=== PATIENT | female | born 1945 | race Caucasian/White ===

== ENCOUNTER 2020-01-06 12:46 | Outpatient (CLI) | payer MEDICARE, SELFPAY ==
--- NOTE | ~2020-01-06 | XR_ITS ---
EXAMINATION: XR chest 2V 01/06/2020 13:14 INDICATION: Cough PROCEDURE: 2 view chest COMPARISON: Comparison to multiple prior studies sequentially, with oldest reviewed study dated 12/12. FINDINGS: There is right middle lobe atelectasis/scarring. No focal pneumonia, edema, pleural effusio n or pneumothorax. The cardiomediastinal silhouette is within normal limits. There are no pleural ef fusions. There is no pneumothorax suspected. IMPRESSION: 1: Right middle lobe atelectasis/scarring. Reviewed, dictated and finalized at location A.
== END 2020-01-06 12:47 | disposition home or self-care (01) ==
PROVIDERS: PCP Internal Medicine; Visit Provider Internal Medicine
DX: R05 Cough (principal)
CPT/HCPCS: 71046

== ENCOUNTER 2020-05-13 09:09 | Outpatient (CLI) | payer MEDICARE, SELFPAY ==
--- NOTE | ~2020-05-13 | MM_ITS ---
EXAMINATION: MM screening [facility]ub[facility] BI w essence HISTORY: Screening mammogram TECHNIQUE: Craniocaudal and mediolateral oblique 3-D tomosynthesis images were obtained and synthetic 2-D images were generated. CAD analysis was submitted and interpreted. COMPARISON: 04/19/2019, 01/15/2018, 12/26/2017, 01/05/2017 BREAST PARENCHYMAL COMPOSITION: There are scattered areas of fibroglandular density. FINDINGS: Scattered benign-appearing calcifications are present. There is no evidence of suspicious m ass, calcification, or architectural distortion to suggest malignancy in either breast. There has bee n no suspicious interval change. IMPRESSION: 1. No mammographic evidence of malignancy. 2. Recommend routine screening mammography in one year. BI-RADS Category 2: Benign finding(s). Reviewed, dictated and finalized at location A.
== END 2020-05-13 09:10 | disposition home or self-care (01) ==
LOC: CHSIMG 09:11
PROVIDERS: PCP Internal Medicine; Visit Provider Internal Medicine
DX: Z12.31 Encounter for screening mammogram for malignant neoplasm of breast (principal)
CPT/HCPCS: 77063; 77067

== ENCOUNTER 2020-10-16 08:14 | Emergency (ER) | payer MEDICARE, SELFPAY ==
--- NOTE | ~2020-10-16 | CT_ITS ---
EXAMINATION: CT brain wo con DATE: 10/16/2020 09:08 INDICATION: Lower extremity tingling. Generalized weakness. Confusion. TECHNIQUE: Computed tomography (CT) of the head was performed without intravenous contrast. The mA wa s adjusted according to patient size. Iterative reconstruction technique was employed. The dose-lengt h product was 605.33 mGy-cm. COMPARISON: None FINDINGS: There are scattered areas of low attenuation in the cerebral white matter, which is within normal limits for the patient's age. There are prominent perivascular spaces in the bilateral basal ganglia. There is no intracranial hemorrhage, acute infarction, or abnormal intracranial mass lesion. The ventricles are normal in size. The paranasal sinuses are clear. The mastoid air cells are normal . The orbits are normal. IMPRESSION: 1. Normal aging brain. Reviewed, dictated and finalized at location A. RIALS RESEARCH ENGINEER IMPRESSION: 1. Normal aging brain.
--- NOTE | ~2020-10-16 | XR_ITS ---
EXAMINATION: XR chest 2V 10/16/2020 09:11 INDICATION: Confusion and general weakness PROCEDURE: 2 view chest COMPARISON: Comparison to multiple prior studies sequentially, with oldest reviewed study dated 06/14. FINDINGS: The lungs are clear. The cardiomediastinal silhouette is within normal limits. There are no pleural effusions. There is no pneumothorax suspected. There are cholecystectomy clips. IMPRESSION: 1: NO ACUTE CARDIOPULMONARY DISEASE. Reviewed, dictated and finalized at location A. IAC CATH LAB TECHNOLOGIST
--- NOTE | ~2020-10-16 | CT_ITS ---
EXAMINATION: CT lumbar spine wo con DATE: 10/16/2020 09:08 INDICATION: Lower limb tingling. TECHNIQUE: Computed tomography (CT) of the lumbar spine was performed without intravenous contrast. A utomated exposure control and iterative reconstruction technique were employed. The dose-length produ ct was 634.53 mGy-cm. COMPARISON: None FINDINGS: There is 9 degrees levocurvature of lumbar spine. Vertebral body heights are normal. There is mildly decreased disc height at L2-L3 and L4-L5 and severely decreased disc height at L5-S1. The f ollowing disc levels are specifically discussed: L1-L2: The disc does not extend beyond the endplate margin. There is mild bilateral facet joint osteo arthritis. There is no neural foraminal stenosis. There is no central canal stenosis. L2-L3: The disc is bulging. There is moderate bilateral facet joint osteoarthritis. There is moderate right and mild left neural foraminal stenosis. There is mild central canal stenosis. L3-L4: The disc is bulging. There is severe right and moderate left facet joint osteoarthritis. There is mild bilateral neural foraminal stenosis. There is mild central canal stenosis. L4-L5: The disc is bulging. There is severe bilateral facet joint osteoarthritis. There is moderate b ilateral neural foraminal stenosis. There is mild central canal stenosis. L5-S1: The disc is bulging. There is severe bilateral facet joint osteoarthritis. There is mild bilat eral neural foraminal stenosis. There is mild central canal stenosis. IMPRESSION: 1. Severe lumbar spondylosis. Reviewed, dictated and finalized at location A. E REPAIRMAN
[2020-10-16 08:30] VITALS: BP 151/74; PULSE 80; RESP 14; TEMP 36.4; O2SAT 100
--- NOTE | 2020-10-16 08:39 | ECG_ITS ---
Measurements Intervals [place] Rate: 67 P: 54 NH: 172 QRS: 52 QRSD: 94 T: 60 QT: 402 QTc: 426 Interpretive Statements SINUS RHYTHM BASELINE ARTIFACT- I, III, AVR, AVL, AVF, V1 NORMAL ECG Electronically Signed On 10-16-2020 10:03:20 RESPIRATORY PRACTITIONER by Angelo Devi D.O.
[2020-10-16 09:37] LABS: Basophils Absolute Auto 0.04 K/mm3 (0.00-0.10); Basophils Percent Auto 0.5 % (0.0-1.0); Eosinophils Absolute Auto 0.14 K/mm3 (0.02-0.50); Eosinophils Percent Auto 1.8 % (1.0-6.0); Hematocrit 44.7 % (35.0-42.0); Hemoglobin 14.5 g/dL (11.7-13.8); Immature Granulocyte Absolute 0.02 K/mm3 (0.00-0.00); Immature Granulocyte Percent A 0.3 % (0.0-0.0); Lymphocytes Absolute Auto 2.36 K/mm3 (1.10-4.50); Lymphocytes Percent Auto 30.5 % (18.0-42.0); Mean Corpuscular HGB Conc 32.4 g/dL (32.0-36.0); Mean Corpuscular Hemoglobin 28.8 pg (27.0-31.0); Mean Corpuscular Volume 88.9 fL (78.0-102.0); Mean Platelet Volume 9.2 fl (9.2-11.8); Monocytes Percent Auto 5.2 % (2.0-11.0); Neutrophils Absolute Auto 4.8 K/mm3 (1.7-7.2); Neutrophils Percent Auto 61.7 % (50.0-70.0); Platelet Count Result 233 K/mm3 (150-420); Red Blood Count 5.03 M/mm3 (4.20-5.40); Red Cell Distribution Width 12.3 % (11.6-14.4); White Blood Count 7.7 K/mm3 (4.8-10.8)
--- NOTE | 2020-10-16 09:37 | ED.WEAKNESS ---
HPI - Weakness General Chief complaint: Weakness Stated complaint: 75YO female w/ known h.o Insomnia here c/o several day h.o gen weakness associated w/ LE tingling at night. Patient also states she has been more forgetful recently having difficult recalling things. Related Data Home Medications Medication Instructions Recorded Confirmed biotin 5,000 mcg PO DAILY 10/16/20 10/16/20 eszopiclone 2 mg PO HS 10/16/20 10/16/20 Allergies Allergy/AdvReac Type Severity Reaction Status Date / Time No Known Allergies Allergy Verified 10/16/20 10:28 Review of Systems Review of Systems: All systems reviewed & are unremarkable except as noted in HPI and below Constitutional: Constitutional: Reports as per HPI and Reports weakness Eyes: Eyes: Reports no additional eye complaints ENT: Reports system reviewed and no additional complaints, except as documented Cardiovascular: Cardiovascular: Reports no additional cardiovascular complaints Respiratory: Respiratory: Reports no additional respiratory complaints, Denies chest congestion, Denies cough, Denies dyspnea and Denies wheezing Gastrointestinal: Gastrointestinal: Reports no additional gastrointestinal complaints, Denies abdominal pain, Denies diarrhea, Denies nausea and Denies vomiting Genitourinary: Genitourinary: Reports no additional female genitourinary complaints Musculoskeletal: Musculoskeletal: Reports no additional musculoskeletal complaints Integumentary/Breasts: Skin/Breast: Reports system reviewed and no additional complaints, except as docu Neurologic: Reports as per HPI and Reports weakness Psychiatric: Psychiatric: Reports no additional psychiatric complaints Endocrine: Endocrine: Reports no additional endocrine complaints Hematologic/Lymphatic: Hematologic/Lymphatic: Reports no additional hematologic/lymphatic complaints Allergic/Immunologic: Allergic/Immunologic: Reports no additional allergic/immunologic complaints [facility]LY [facility] Past Medical History Medical History H/O vaginal delivery x2 1970, 1968 High cholesterol Insomnia Surgical History Surgical History Hx of cholecystectomy 2011 [place] teeth extracted 2011 Family History Family History Father Hypertension Family history of malignant neoplasm of urinary bladder, Onset Age: 67 Acute myocardial infarction Mother Cerebrovascular accident, Onset Age: 68 Social History Social History Smoking status: Former smoker Second hand tobacco smoke exposure: No Smoking end date: 10/30/77 Alcohol intake: never Exam Const: General: healthy appearing, no acute distress and alert Nutritional Appearance: well nourished Orientation/consciousness: patient oriented x3 HENMT: Head: normal to inspection Eyes: Conjunctivae: conjunctivae normal Pupils: Equal, round and reactive pupils present Neck: Neck: normal visual inspection Chest: Chest palpation & inspection: normal inspection of the chest Resp: Effort & Inspection: normal respiratory effort Cardio: Rate: regular rate Rhythm: regular rhythm GI: Inspection: non-distended GI Palp: Yes Soft to palpation, No Tenderness to palpation present (GI) and No Guarding due to palpation present (GI) : General: Yes no CVA tenderness Urinary Catheter: Urinary Catheter: patent and draining Back/Spine/Pelvis: Back: no CVA tenderness Skin: General skin exam: normal color Neuro: General: patient oriented x3, moves all extremities, no meningeal signs, no focal motor deficits and CN's II-XI intact bilaterally Cranial nerves: Yes Nystagmus not present Speech: normal speech Gait exam (Neuro): Normal gait present Extrem: General: normal to inspection and no pedal edema Psych: Appearance: etelvina
[2020-10-16 09:43] LABS: INR 0.9; Prothrombin Time 10.3 Seconds (9.50-12.10)
[2020-10-16 09:49] LABS: BNP 22 pg/mL (0-100)
[2020-10-16 10:11] LABS: Alanine Aminotransferase 40 U/L (14-59); Albumin Level 3.7 g/dL (3.4-5.0); Alkaline Phosphatase 67 U/L (46-116); Anion Gap 5 mmol/L (8-16); Aspartate Amino Transferase 30 U/L (15-37); Bilirubin,Total 0.3 mg/dL (0.00-1.00); Blood Urea Nitrogen 11 mg/dL (7-18); Calcium 9.3 mg/dL (8.5-10.1); Carbon Dioxide 30 mmol/L (21-32); Chloride 101 mmol/L (98-108); Estimated CRCL calculation 43 ml/min; Estimated Glomerular Filt Rate > 60; Glucose 96 mg/dL (70-99); Lipase 98 U/L (73-393); Osmolality Calculated 281 mOsm/kg (285-295); Potassium 3.6 mmol/L (3.5-5.1); Sodium 136 mmol/L (136-145); Total Protein 7.7 g/dL (6.4-8.2); Troponin I 5.4 ng/L (0.00-60.4)
[2020-10-16 10:12] LABS: Magnesium 2.3 mg/dL (1.8-2.4)
[2020-10-16 10:13] LABS: Folic Acid > 20.0 ng/mL (8.6->20); Iron 122 ug/dL (50-170); Percent Iron Saturation 36 % (12-57); Vitamin B12 769 pg/mL (193-986)
[2020-10-16 10:13] LABS: Add Urine Microscopic? YES; Appearance Urine Clear (Clear); Bilirubin Urine Negative (Negative); Blood Urine 1+ (Negative); Color Urine Yellow (Yellow); Glucose Urine UA Negative (Negative); Ketones Urine Negative (Negative); Leukocyte Esterase Ur 1+ LEU/UL (Negative); Nitrate Urine Negative (Negative); Protein Urine Negative (Negative); Specific Grav Ur 1.025 (1.010-1.020); Urobilinogen Urine 0.2 mg/dL (0.2-1.0); pH Urine 6.5 (5.0-8.0)
[2020-10-16 10:17] LABS: Bacteria Urine 1+ /hpf; RBC Urine 0-2 /hpf (0-2); Renal Epithelial Cells Urine Few /hpf; Squamous Epithelial Cell Urine Few /hpf (Few)
--- NOTE | 2020-10-16 10:25 | PC.NURSE ---
report to vinayak mcqueen
[2020-10-16 11:10] VITALS: BP 145/99; O2SAT 97
== END 2020-10-16 11:13 | disposition home or self-care (01) ==
PROVIDERS: Emergency Provider Family Medicine; PCP Internal Medicine
DX: M47.9 Spondylosis, unspecified (principal); G31.84 Mild cognitive impairment of uncertain or unknown etiology; R53.1 Weakness; E78.00 Pure hypercholesterolemia, unspecified; Z87.891 Personal history of nicotine dependence
CPT/HCPCS: 36415; 70450; 71046; 72131; 80053; 81001; 82607; 82746; 83540; 83550; 83690; 83735; 83880; 84443; 84484; 85025; 85610; 85730; 87086; 87088; 93005; 99283; 99284

== ENCOUNTER 2020-10-28 08:38 | Outpatient (CLI) | payer MEDICARE, SELFPAY ==
--- NOTE | ~2020-10-28 | MR_ITS ---
EXAMINATION: MR brain/brain stem wo con EXAM DATE: 10/28/2020 11:09 INDICATION: CVA with hemiparesis and ataxia, speech impairment. TECHNIQUE: Magnetic resonance imaging (MRI) of the brain/brain stem obtained without contrast. Sagitt al T1, axial diffusion, gradient echo (T2*), T1, T2, FLAIR sequences obtained. Comparison is made to prior examination from 11/24/2010. FINDINGS: Scattered small regions of restricted diffusion in the sherman, mostly in the left side, consi stent with acute infarction. There is mild microangiopathy and mild to moderate cerebral atrophy. Th ere is no acute hemorrhage seen on the T2*, a hemosiderin sensitive sequence. No intraparenchymal br ain mass. The ventricles are normal in size. There are no extra-axial collections. Flow voids are s een in the cerebral arteries on the T2-weighted sequences consistent with their expected patency. Th e orbits are unremarkable. Soft tissue is unremarkable. IMPRESSION: 1. Acute pontine infarctions. Reviewed, dictated and finalized at location B. FRENCH
--- NOTE | ~2020-10-28 | US_ITS ---
EXAMINATION: US carotid duplex BI DATE: 10/28/2020 10:17 INDICATION: Stroke with hemiparesis and ataxia TECHNIQUE: Grayscale, color Doppler, and pulsed Doppler images of the cervical carotid arteries were obtained. The degree of vessel stenosis is placed in one of the following categories: normal, <50%, 5 0-69%, >=70% but less than near-occlusion, near-occlusion, or total occlusion. Note that percent sten osis relative to normal distal artery lumen diameter is indirectly measured from velocity measurement s as described by Ozzie, et al. Radiology 2003; 229:340-346. COMPARISON: 11/06/2009 FINDINGS: RIGHT: The right common carotid artery (CCA) peak systolic velocity (PSV) is 77 cm/s. The right internal car otid artery (ICA) PSV is 63 cm/s. The right ICA end-diastolic velocity (EDV) is 13 cm/s. The right IC A/CCA PSV ratio is 0.8. Grayscale and color Doppler images yield an estimate of <50% diameter reducti on from plaque in the ICA. The external carotid artery (ECA) PSV is 87 cm/s. There is antegrade flow in the right vertebral artery. LEFT: The left CCA PSV is 72 cm/s. The left ICA PSV is 59 cm/s. The left ICA EDV is 11 cm/s. The left ICA/C CA PSV ratio is 0.8. Grayscale and color Doppler images yield an estimate of <50% diameter reduction from plaque in the ICA. The ECA PSV is 86 cm/s. There is antegrade flow in the left vertebral artery. IMPRESSION: 1. <50% stenosis in the right internal carotid artery. 2. <50% stenosis in the left internal carotid artery. Reviewed, dictated and finalized at location A. ESIST
== END 2020-10-28 08:39 | disposition home or self-care (01) ==
LOC: CHSIMG 08:42
PROVIDERS: PCP Internal Medicine; Visit Provider Internal Medicine
DX: R27.0 Ataxia, unspecified (principal); I63.9 Cerebral infarction, unspecified; G81.90 Hemiplegia, unspecified affecting unspecified side
CPT/HCPCS: 70551; 93880

== ENCOUNTER 2021-08-06 07:50 | Emergency (ER) | payer MEDICARE, SELFPAY ==
[2021-08-06 08:20] VITALS: BP 125/70; PULSE 80; RESP 19; TEMP 36.8; O2SAT 99
--- NOTE | 2021-08-06 08:48 | ED.GENADULT ---
HPI - General Adult General Chief complaint: Shortness of Breath/Dyspnea Stated complaint: covid symptoms Time Seen by Provider: 08/06/21 07:55 Source: patient and RN notes reviewed Mode of arrival: ambulatory Limitations: no limitations History of Present Illness Onset (ago): week(s) (1) Severity: mild Severity scale (1-10): 1 Quality: other (Pt has a mild occasional cough. She came for booster covid shot and saw sxs on a sign-----which she feels like she has been having: memory loss, tiredness, and the cough. no acute sxs today.) Associated symptoms: cough Treatments prior to arrival: none Related Data Home Medications Medication Instructions Recorded Confirmed eszopiclone 2 mg PO HS 10/16/20 08/06/21 Allergies Allergy/AdvReac Type Severity Reaction Status Date / Time No Known Allergies Allergy Verified 08/06/21 08:19 Review of Systems Review of Systems: All systems reviewed & are unremarkable except as noted in HPI and below PMFSH Past Medical History Medical History H/O vaginal delivery x2 1970, 1968 High cholesterol Insomnia Surgical History Surgical History Hx of cholecystectomy 2011 [place] teeth extracted 2011 Family History Family History Father Hypertension Family history of malignant neoplasm of urinary bladder, Onset Age: 67 Acute myocardial infarction Mother Cerebrovascular accident, Onset Age: 68 Social History Social History Smoking status: Former smoker Second hand tobacco smoke exposure: No Smoking end date: 10/30/77 Alcohol intake: never Exam Const: General: no acute distress and alert Nutritional Appearance: well nourished Orientation/consciousness: patient oriented x3 HENMT: Head: normal to inspection Ears: external ears normal and TM's normal bilaterally General nose exam: Normal external nose present and Normal nares present Mouth: Yes lip normal and Yes moist mucous membranes Teeth and gingiva: dentition normal Throat: posterior oropharynx normal Eyes: Conjunctivae: conjunctivae normal Pupils: Equal, round and reactive pupils present EOM: EOMs intact bilaterally Neck: Neck: normal visual inspection and no lymphadenopathy Chest: Chest palpation & inspection: normal inspection of the chest Resp: Effort & Inspection: normal respiratory effort Auscultation: clear to auscultation bilaterally Cardio: Rate: regular rate Rhythm: regular rhythm GI: GI Palp: Yes Soft to palpation (non-tender.) Percussion: Yes normal to percussion : General: Yes bladder normal to palpation and Yes no CVA tenderness Back/Spine/Pelvis: Back: no CVA tenderness Skin: General skin exam: normal color Rashes: no rashes Neuro: General: patient oriented x3, moves all extremities, no meningeal signs, no focal motor deficits and CN's II-XI intact bilaterally Extrem: General: normal to inspection and no pedal edema Psych: Appearance: grossly normal and well kempt Mental Status: mental status grossly normal Thought content: Yes Normal thought content present Course Course Emergency Course: Pt was in no acute distress. For home. Reevaluation(s) Reevaluation #1: pt was comfortable in the ED. Date: 08/06/21 Time: 09:02 Vital Signs Vital signs: Vital Signs Temperature 36.8 C 08/06/21 08:20 Pulse Rate 80 08/06/21 08:20 Respiratory Rate 19 08/06/21 08:20 Blood Pressure 125/70 08/06/21 08:20 Pulse Oximetry 99 08/06/21 08:20 Temperature 36.8 C 08/06/21 08:20 Pulse Rate 80 08/06/21 08:20 Respiratory Rate 19 08/06/21 08:20 Blood Pressure 125/70 08/06/21 08:20 Pulse Oximetry 99 08/06/21 08:20 Medical Decision Making Vital Signs Vital Signs: Vital Signs Temperature 36.8 C
[2021-08-06 09:06] LABS: SARS-CoV-2 Ag Negative (Negative)
[2021-08-06 09:20] VITALS: BP 142/69; PULSE 69; RESP 18; O2SAT 99
== END 2021-08-06 09:22 | disposition home or self-care (01) ==
PROVIDERS: Emergency Provider Emergency Medicine; PCP Internal Medicine
DX: J06.9 Acute upper respiratory infection, unspecified (principal); R05.9 Cough, unspecified; Z20.822 Contact with and (suspected) exposure to COVID-19
CPT/HCPCS: 87426; 99282; 99283; C9803

== ENCOUNTER 2021-10-18 13:44 | Outpatient (RCR) | payer MEDICARE, SELFPAY ==
--- NOTE | 2021-10-18 14:50 | PTOPEVAL ---
Thank you for referring Ayleen De Guzman to [facility].? The patient is scheduled to be seen for therapy? ____x/week for ___ weeks. Please review, sign, date and return this plan of care REBEL. I agree with and certify that the following plan of care is medically necessary. Referring Physician Date Admitting Provider: Attending Provider: Misha Shipley MD Referring Provider: *PT Outpatient Evaluation Start: 10/18/21 13:44 Freq: Status: Active Protocol: Document 10/18/21 13:44 ACR (Rec: 10/18/21 14:49 ACR [id number]) Therapy Assessment Status Assessment Status Assessment Status Evaluation Outpatient Past Medical History Neurological History Hx Other Neurological Disorders Yes: pt reports small stroke 4 to 5 months ago Reproductive History Hx Post Menopausal Yes Evaluation Information Problem Diagnosis L hip pain Onset 10/13/21 Subjective Information Patient reports that her hip Query Text:As Reported By Patient/ is really bothering her and it Family goes down her leg occaionally . She states that her pain intensifies after sitting for a period of time and trying to get up. She states that stairs are difficult for her and has to keep the leg straight when going down the steps. Patient states that prolonged walking and standing irritate the hip, but not as bad as prolonged sitting. The patient states she has pain in the morning. Patient denies falls. Patient states that her mind is slipping and her balance is off. She states that her goal for therapy is to get rid of the pain. Patient reports she is leaving this Monday for a month to go see her son. Prior Level of Function Activity Level (Last 3 Months) Occupation retired Hand Dominance Right Activity of Daily Living Ability Independent Indoor/Home Mobility Independent Community Mobility Independent Stairs Ability Independent Functional Cognition (Planning, Shopping Independent , Taking Medications) Cooking Yes Cleaning Yes Laundry
--- NOTE | 2021-12-07 09:03 | PTOPEVAL ---
Thank you for referring Ayleen De Guzman to [facility].? The patient is scheduled to be seen for therapy? ____x/week for ___ weeks. Please review, sign, date and return this plan of care REBEL. I agree with and certify that the following plan of care is medically necessary. Referring Physician Date Admitting Provider: Attending Provider: Misha Shipley MD Referring Provider: *PT Outpatient Evaluation Start: 10/18/21 13:44 Freq: Status: Active Protocol: Document 12/07/21 08:07 ACR (Rec: 12/07/21 09:03 ACR [id number]) Therapy Assessment Status Assessment Status Assessment Status Progress Outpatient Past Medical History Neurological History Hx Other Neurological Disorders Yes: pt reports small stroke 4 to 5 months ago Reproductive History Hx Post Menopausal Yes Evaluation Information Problem Diagnosis L hip pain Onset 10/13/21 Subjective Information Patient reports that she is Query Text:As Reported By Patient/ feeling a lot better, but Family would like to continue because she is doing better. Patient states that she feels that she puts a lot of stress on the L hip causing pain. She states that steps are a little easier . Patient states that she feels weaker after walking for a period of time. Patient states that she still has pain , but she is still able to move around. Pain Assessment Timing of Pain Assessment Timing of Pain Assessment Assessment Pain Scale Pain Scale Used Numeric (1 - 10) Self Report Pain Assessment Left Hip(s) Reported Pain Level 0 Greatest Pain Intensity 8 Pain Score Pain Score 0: Self Report Additional Pain Score Comments Pain does not last long Interventions Used Interventions Used By Clinicians Activity or ADL's,Exercise Lower Extremity Muscle Strength Testing Hip Strength Right Hip Flexion Strength 5 Normal Hip Abduction Strength 4+ Good + Left Hip Flexion Strength 5 Normal Hip Abduction Strength 4+ Good + Knee Strength Right Knee Flexion Strength 5 Normal Knee Extension Strength 5 Normal Left Knee Flexion Strength 5 Normal Knee Extension Strength 5 Normal Balance Assessment Tinetti Balance Assessment Sitting Balance Steady, safe Ability to Arise Able, w/o using arms Attempts to Arise Arises on 1st att
== END 2021-12-07 10:30 | disposition home or self-care (01) ==
LOC: CHSPT 13:44
PROVIDERS: PCP Internal Medicine; Visit Provider Internal Medicine
DX: M25.552 Pain in left hip (principal)
CPT/HCPCS: 97110; 97161; 97530

== ENCOUNTER 2021-11-19 11:41 | Outpatient (CLI) | payer MEDICARE, SELFPAY ==
[2021-11-19 12:10] LABS: SARS-CoV-2 Ag Negative (Negative)
== END 2021-11-19 11:42 | disposition home or self-care (01) ==
PROVIDERS: PCP Internal Medicine; Visit Provider Internal Medicine
DX: R05.9 Cough, unspecified (principal); Z20.822 Contact with and (suspected) exposure to COVID-19
CPT/HCPCS: 87426; C9803

== ENCOUNTER 2022-05-09 09:48 | Outpatient (CLI) | payer MEDICARE, SELFPAY ==
[2022-05-09 10:48] LABS: SARS-CoV-2 RNA PCR Negative (Negative)
== END 2022-05-09 09:49 | disposition home or self-care (01) ==
LOC: CHSLAB 09:58
PROVIDERS: PCP Internal Medicine; Visit Provider Internal Medicine
DX: Z20.822 Contact with and (suspected) exposure to COVID-19 (principal)
CPT/HCPCS: C9803; U0003; U0005

== ENCOUNTER 2023-04-05 07:35 | Emergency (ER) | payer MEDICARE, SELFPAY ==
[2023-04-05 07:35] VITALS: BP 145/89; PULSE 75; RESP 14; TEMP 36.6; O2SAT 97
--- NOTE | 2023-04-05 08:01 | ED.GENADULT ---
HPI - General Adult General Chief complaint: Skin/Abscess/Foreign Body Stated complaint: rash Time Seen by Provider: 04/05/23 08:00 History of Present Illness HPI narrative: The patient is a 77-year-old woman otherwise healthy, who approximately 2 and half weeks ago went to her [facility] where she has not been for some time. Nobody has slept in her bed. She has developed insect bites on her body which make her itch over the last 2 weeks, since going to the [facility]. These are mostly in the lower extremities but also in the back arms neck abdomen. She has not noticed any insects or bedbugs. She has change the sheets and wash them extensively. No new detergents. No swelling of the tongue or throat. No difficulty breathing or wheezing. No fevers or chills. She has not treated herself with any medications such as Benadryl. Related Data Allergies Allergy/AdvReac Type Severity Reaction Status Date / Time No Known Allergies Allergy Verified 04/05/23 07:50 Review of Systems Review of Systems: All systems reviewed & are unremarkable except as noted in HPI and below Constitutional: Constitutional: Denies chills, Denies excessive sweating, Denies fatigue, Denies fever(s), Denies headache(s) and Denies weakness Eyes: Eyes: Denies change in vision and Denies photophobia ENT: Denies dysphagia, Denies dizziness, Denies headache(s), Denies lip swelling, Denies nasal congestion, Denies sore throat and Denies tongue swelling Cardiovascular: Cardiovascular: Denies chest pain, Denies syncope, Denies rapid heart rate and Denies dyspnea Respiratory: Respiratory: Denies cough, Denies dyspnea and Denies wheezing Gastrointestinal: Gastrointestinal: Denies abdominal pain, Denies constipation, Denies dysphagia, Denies diarrhea, Denies nausea and Denies vomiting Genitourinary: Genitourinary: Denies hematuria, Denies urinary frequency, Denies dysuria and Denies urinary urgency Musculoskeletal: Musculoskeletal: Denies back pain, Denies myalgias, Denies arthralgias, Denies joint swelling and Denies numbness Integumentary/Breasts: Skin/Breast: Reports pruritus, Reports new lesions, Reports erythema, Reports rash and Denies skin ulcer Neurologic: Denies confusion, Denies dizziness, Denies syncope, Denies headache(s), Denies focal weakness, Denies numbness and Denies weakness Psychiatric: Psychiatric: Denies anxiety and Denies confusion Endocrine: Endocrine: Denies excessive sweating and Denies fatigue Hematologic/Lymphatic: Hematologic/Lymphatic: Denies easy bleeding and Denies easy bruising Allergic/Immunologic: Allergic/Immunologic: Denies lip swelling, Denies tongue swelling and Denies wheezing PMFSH Past Medical History Medical History H/O vaginal delivery x2 1971, 1968 High cholesterol Insomnia Surgical History Surgical History Hx of cholecystectomy 2011 [place] teeth extracted 2011 Family History Family History Father Hypertension Family history of malignant neoplasm of urinary bladder, Onset Age: 67 Acute myocardial infarction Mother Cerebrovascular accident, Onset Age: 68 Social History Social History Smoking status: Former smoker Second hand tobacco smoke exposure: No Smoking end date: 10/30/77 Alcohol intake: never Exam Const: General: healthy appearing, no acute distress, alert and well nourished Nutritional Appearance: well nourished Orientation/consciousness: patient oriented x3 Limitations: no limitations HENMT: Head: normal to inspection Ears: external ears normal Face/Nose/Sinus: normal facial exam Face and sinus: normal facial exam Mouth: Yes moist mucous membranes Throat: posterior oropharynx normal Other: oropharynx normal Eyes: Conjunctivae:
[2023-04-05] MEDS: predniSONE 20 MG TABLET 60 MG PO (08:15)
[2023-04-05] MEDS: LORATADINE 10 MG TABLET 20 MG PO (08:15)
== END 2023-04-05 08:30 | disposition home or self-care (01) ==
LOC: CHSED 08:34
PROVIDERS: Emergency Provider Emergency Medicine
DX: S70.362A Insect bite (nonvenomous), left thigh, initial encounter (principal); S30.860A Insect bite (nonvenomous) of lower back and pelvis, initial encounter; S30.861A Insect bite (nonvenomous) of abdominal wall, initial encounter; Z87.891 Personal history of nicotine dependence; W57.XXXA Bitten or stung by nonvenomous insect and other nonvenomous arthropods, initial encounter
CPT/HCPCS: 99283; A9270; J7512

== ENCOUNTER 2024-02-10 21:05 | Emergency (ER) | payer MEDICARE, SELFPAY ==
--- NOTE | ~2024-02-10 | CT_ITS ---
EXAMINATION: CT abdomen pelvis w con DATE: 02/10/2024 22:45 INDICATION: Lower abdominal pain and cramping TECHNIQUE: Computed tomography (CT) of the abdomen and pelvis was performed with 100 mL Omnipaque-350 intravenous contrast. Automated exposure control and iterative reconstruction technique were employe d. The dose-length product was 273.43 mGy-cm. COMPARISON: None FINDINGS: Mild atelectasis in the bilateral lower lungs. Heart size is normal. Atherosclerotic coronary artery calcification. No pericardial or pleural effusion. Cholecystectomy clips at the gallbladder fossa. Li johnathon, pancreas and bilateral adrenal glands are normal. There are a few subcentimeter low-attenuation lesions scattered throughout the spleen most likely representing cysts or hemangiomas. There are also bilateral low-attenuation renal cysts the largest on the right measuring up to 1 cm. Fluid throughou t the colon consistent with nonspecific diarrhea. No bowel obstruction. The appendix is not visualize d. No pericecal inflammatory change to suggest acute appendicitis. Bladder, uterus and bilateral adne xa are unremarkable. No free intraperitoneal gas or fluid. No pathologically enlarged abdominal or pe lvic lymphadenopathy. Severe disc height loss at L5-S1. Otherwise mild cephalad lumbar and lower thor acic spondylosis. IMPRESSION: 1. Fluid throughout the colon consistent with nonspecific diarrhea. Correlate clinically for gastroen teritis. No other acute intra-abdominal/pelvic process. Reviewed, dictated and finalized at location A. IMPRESSION: 1. Fluid throughout the colon consistent with nonspecific diarrhea. Correlate c linically for gastroenteritis. No other acute intra-abdominal/pelvic process.
[2024-02-10 21:08] VITALS: BP 146/76; PULSE 85; RESP 18; TEMP 36.5; O2SAT 93
--- NOTE | 2024-02-10 21:13 | ED.NAVMDI ---
HPI - Nausea/Vomiting/Diarrhea General Chief complaint: Nausea/Vomiting/Diarrhea Stated complaint: diarrhea Time Seen by Provider: 02/10/24 21:05 Source: patient and family Mode of arrival: ambulatory Limitations: no limitations History of Present Illness HPI Narrative: this is an 78-year-old female with presents with abdominal pain was discharged from hospital today after she was admitted with diarrhea and crampy abdominal pain. Patient denies any fever chills there is some diarrhea that she describes as watery stools with some no chest pain no shortness of breath. according to her son discharged today from [facility] [place] and discharged on antibiotics. For urinary tract infection. MD elicited complaint: diarrhea and abdominal pain Onset (ago): day(s) Description of vomiting: watery Associated abdominal pain: Yes Radiation: diffuse Pain consistency: constant Severity: mild Related Data Allergies Allergy/AdvReac Type Severity Reaction Status Date / Time No Known Allergies Allergy Verified 02/10/24 21:23 Review of Systems Review of Systems: All systems reviewed & are unremarkable except as noted in HPI and below PMFSH Past Medical History Medical History H/O vaginal delivery x2 1970, 1968 High cholesterol Insomnia Surgical History Surgical History Hx of cholecystectomy 2011 [place] teeth extracted 2011 Family History Family History Father Hypertension Family history of malignant neoplasm of urinary bladder, Onset Age: 67 Acute myocardial infarction Mother Cerebrovascular accident, Onset Age: 68 Social History Social History Smoking status: Former smoker Second hand tobacco smoke exposure: No Smoking end date: 10/30/77 Alcohol intake: never Exam Const: General: no acute distress Nutritional Appearance: well nourished Limitations: no limitations HENMT: Head: normal to inspection Eyes: Conjunctivae: conjunctivae normal Pupils: Equal, round and reactive pupils present Neck: Neck: normal visual inspection and no lymphadenopathy Chest: Chest palpation & inspection: normal inspection of the chest Resp: Effort & Inspection: normal respiratory effort Auscultation: clear to auscultation bilaterally Cardio: Rate: regular rate Rhythm: regular rhythm GI: GI Palp: Yes Soft to palpation Auscultation: normal bowel sounds : General: Yes bladder normal to palpation Skin: General skin exam: normal color Rashes: no rashes Wounds: no wounds Neuro: General: patient oriented x3 Course Course Emergency Course: IV fluids with normal saline started, EKG CT scan was of abdomen and pelvis with contrast and blood work performed and reviewed with patient. Vital Signs Vital signs: Vital Signs Temperature 36.5 C 02/10/24 21:08 Pulse Rate 85 02/10/24 21:08 Respiratory Rate 18 02/10/24 21:08 Blood Pressure 146/76 H 02/10/24 21:08 Pulse Oximetry 93 02/10/24 21:08 Oxygen Delivery Room Air 02/10/24 21:08 Temperature 36.5 C 02/10/24 21:08 Pulse Rate 85 02/10/24 21:08 Respiratory Rate 18 02/10/24 21:08 Blood Pressure 146/76 H 02/10/24 21:08 Pulse Oximetry 93 02/10/24 21:08 Oxygen Delivery Room Air 02/10/24 21:08 Critical Care Time Critical Care Time Critical Care Time: No Discharge Plan Discharge Clinical Impression: Gastroenteritis, Acute hyperkalemia Patient Disposition: Home, Self-Care Condition: Stable Instructions: Antibiotic Form, Hypokalemia (ED), Gastroenteritis (ED) Additional Instructions: advised to take medicine as prescribed and follow up primary within 1 week further evaluation and treatment. can take [id number] Imodium for diarrhea. Prescriptions: Ne
--- NOTE | 2024-02-10 21:15 | ECG_ITS ---
SEE SCANNED COPY FOR CONFIRMED REPORT MTDD
[2024-02-10] MEDS: SODIUM CHLORIDE 0.9% IV 1,000 ML 999 ML IV CONT (21:22)
[2024-02-10 21:52] LABS: Basophils Absolute Auto 0.01 K/mm3 (0.00-0.10); Basophils Percent Auto 0.1 % (0.0-1.0); Eosinophils Absolute Auto 0.05 K/mm3 (0.02-0.50); Eosinophils Percent Auto 0.7 % (1.0-6.0); Hematocrit 39.2 % (35.0-42.0); Hemoglobin 12.8 g/dL (11.7-13.8); Immature Granulocyte Absolute 0.03 K/mm3 (0.00-0.00); Immature Granulocyte Percent A 0.4 % (0.0-0.0); Lymphocytes Percent Auto 23.2 % (18.0-42.0); Mean Corpuscular HGB Conc 32.7 g/dL (32-36); Mean Corpuscular Volume 88.9 fL (78.0-102.0); Mean Platelet Volume 9.5 fl (9.2-11.8); Monocytes Absolute Auto 0.53 K/mm3 (0.10-0.90); Monocytes Percent Auto 7.7 % (2.0-11.0); Neutrophils Absolute Auto 4.69 K/mm3 (1.70-7.20); Neutrophils Percent Auto 67.9 % (50.0-70.0); Platelet Count Result 179 K/mm3 (150-420); Red Blood Count 4.41 M/mm3 (4.20-5.40); Red Cell Distribution Width 13.4 % (11.6-14.4); White Blood Count 6.9 K/mm3 (4.8-10.8)
[2024-02-10 22:04] LABS: INR 1.1; Prothrombin Time 11.5 Seconds (9.50-12.1)
[2024-02-10 22:07] LABS: Alanine Aminotransferase 39 U/L (14-59); Albumin Level 3.2 g/dL (3.4-5.0); Alkaline Phosphatase 50 U/L (46-116); Anion Gap 11 mmol/L (4-12); Aspartate Amino Transferase 28 U/L (15-37); Bilirubin,Total 0.3 mg/dL (0.00-1.00); Blood Urea Nitrogen 13 mg/dL (7-18); Calcium 8.1 mg/dL (8.5-10.1); Carbon Dioxide 24 mmol/L (21-32); Chloride 106 mmol/L (98-108); Estimated CRCL calculation 48 ml/min; Estimated Glomerular Filt Rate > 60; Glucose 108 mg/dL (70-99); Lipase 23 U/L (16-77); Osmolality Calculated 293 mOsm/kg (285-295); Potassium 3.1 mmol/L (3.5-5.1); Sodium 141 mmol/L (136-145); Total Protein 6.4 g/dL (6.4-8.2)
[2024-02-10 22:12] LABS: Lactic Acid Reflex 1.3 mmol/L (0.4-2.0)
[2024-02-10] MEDS: POTASSIUM BICARBONATE 25 MEQ TABEF 50 MEQ PO (22:41)
[2024-02-10 23:42] VITALS: BP 132/71; PULSE 88; RESP 18; O2SAT 98
[2024-02-10] MEDS: LOPERAMIDE HCL 2 MG CAPSULE PO (23:48)
--- NOTE | 2024-02-17 13:24 | PC.NURSE ---
final blood cultures x2 reviewed. no growth after 5 days, no change in plan of care.
== END 2024-02-10 23:52 | disposition home or self-care (01) ==
PROVIDERS: Emergency Provider Emergency Medicine; PCP Family Medicine
DX: K52.9 Noninfective gastroenteritis and colitis, unspecified (principal); E87.5 Hyperkalemia; Z87.891 Personal history of nicotine dependence
CPT/HCPCS: 36415; 74177; 80053; 83605; 83690; 85025; 85610; 85730; 87040; 93005; 96360; 99284; A9270; J7030; Q9967